=== PATIENT | male | born 2000 | race African-American/Black ===

== ENCOUNTER 2022-12-01 09:22 | Emergency (ER) | payer MEDICAID, OTHER ==
[~2022-12-01] VITALS: Ht 175.3 cm; Wt 60.0 kg
[2022-12-01 09:30] VITALS: BP 119/63
[2022-12-01] MEDS ORDERED: IBUPROFEN 600MG TABLET PO STA (10:36)
[2022-12-01] MEDS ORDERED: ACETAMINOPHEN 325MG TABLET PO STA (10:39)
[2022-12-01] MEDS ORDERED: IBUP-2029 PO (12:09)
[2022-12-01] MEDS ORDERED: D-ME473S50 PO (12:09)
== END 2022-12-01 12:31 | disposition home or self-care (01) ==
LOC: ER 09:22
DX: B34.9 Viral infection, unspecified (principal); Z20.822 Contact with and (suspected) exposure to COVID-19
CPT/HCPCS: 71045; 87426; 87804; 99284; C9803